=== PATIENT | female | born 2000 | race Hispanic/Latino ===

== ENCOUNTER → 2023-06-03 14:00 | Outpatient (REF) | payer OTHER, SELFPAY | LOC: CLINIC 14:00 | PROVIDERS: ATTENDING PHYSICIAN Physician Assistant Medical | DX: R10.2 Pelvic and perineal pain (principal) | CPT/HCPCS: 76830; 76856 ==

== ENCOUNTER → 2023-12-21 14:07 | Outpatient (REF) | payer OTHER, SELFPAY ==
[2023-12-21 15:11] LABS: ALT (SGPT) 37 U/L (0-35); AST (SGOT) 30 U/L (14-36); Albumin 4.5 g/dl (3.5-5.0); Alkaline Phosphatase 102 U/L (38-126); Blood Urea Nitrogen 11 mg/dl (7-17); Calcium 9.5 mg/dl (8.4-10.2); Carbon Dioxide 26 mmol/L (22-30); Chloride 103 mmol/L (98-107); Glucose 99 mg/dl (70-99); Potassium 4.6 mmol/L (3.5-5.1); Sodium 140 mmol/L (135-145); Total Bilirubin 0.4 mg/dl (0.2-1.3); Total Protein 7.3 g/dl (6.3-8.2); eGFR > 60.00
[2023-12-22 07:37] LABS: Glycohemoglobin (HgbA1c) 5.5 % (4.0-5.6)
== END ==
LOC: REG 14:07
PROVIDERS: ATTENDING PHYSICIAN Nurse Practitioner Adult Health
DX: L83 Acanthosis nigricans (principal)
CPT/HCPCS: 36415; 80053; 83036